=== PATIENT | male | born 1990 | race American Indian/Alaskan Native ===

== ENCOUNTER 2019-08-13 04:52 | Emergency (ER) | payer SELFPAY ==
[2019-08-13] MEDS ORDERED: oxyCODONE /ACETAMINOPHEN 5-325MG TAB PO ONE (07:30)
--- NOTE | 2019-08-13 08:07 | XRay Report ---
RIGHT HAND 2 VIEWS INDICATION / CLINICAL INFORMATION: Right hand injury COMPARISON: None available. FINDINGS: BONES / JOINT(S): No acute fracture or subluxation. No significant arthritis. SOFT TISSUES: No significant abnormality. No radiopaque foreign bodies are seen. ADDITIONAL FINDINGS: None. Signer Name: Vinod Leonardo MD Signed: 08/13/2019 8:02 AM Workstation Name: [id number]
[2019-08-13] MEDS ORDERED: LIDOCAINE (1%) 10 MG/1 ML VIAL 20 ML MDV INFILTRATI ONE (08:48)
[2019-08-13] MEDS ORDERED: NEOMY 3.5 MG/BACIT 400 UNITS/POLY B 5000 UNITS/GM OINT PACKET TP ONE ×2 (09:39→09:42)
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
[2019-08-13 10:37] VITALS: BP 110/70
== END 2019-08-13 10:36 | disposition home or self-care (01) ==
LOC: ED 04:52
DX: S61.411A Laceration without foreign body of right hand, initial encounter (principal); S60.511A Abrasion of right hand, initial encounter; X58.XXXA Exposure to other specified factors, initial encounter; Y93.89 Activity, other specified; Y92.89 Other specified places as the place of occurrence of the external cause; Y99.8 Other external cause status
CPT/HCPCS: A6250

== ENCOUNTER 2019-12-07 12:22 | Emergency (ER) | payer SELFPAY ==
--- NOTE | 2019-12-07 16:34 | Emergency Department Report ---
ED General Adult HPI - General Chief complaint: Urogenital-Male Stated complaint: NEED BLOODWORK Time Seen by Provider: 12/07/19 16:00 Source: patient Mode of arrival: Ambulatory Limitations: No Limitations - History of Present Illness Initial comments: 29-year-old -[place] male patient without past medical history presents with complaints of recurrent penile lesion x 1 year. He states the lesion is painful and tingles. He denies any scrotal pain/swelling, penile discharge, abdominal pain, nausea/vomiting, hematuria/dysuria, or urinary frequency. He rates his current pain as a 4/10 in severity. - Related Data Previous Rx's Medication Instructions Recorded Last Taken Type Ibuprofen [Motrin] 600 mg PO Q8H PRN #15 tablet 08/13/19 Unknown Rx cephALEXin [Keflex] 500 mg PO Q12HR #14 cap 08/13/19 Unknown Rx Valacyclovir HCl [Valacyclovir] 1,000 mg PO QDAY 5 Days #5 tablet 12/07/19 Unk nown Rx Allergies Allergy/AdvReac Type Severity Reaction Status Date / Time No Known Allergies Allergy Unverified 08/13/19 09:39 ED Review of Systems ROS: Stated complaint: NEED BLOODWORK Other details as noted in HPI Constitutional: denies: chills, diaphoresis, fever, malaise, weakness Respiratory: denies: cough, shortness of breath Cardiovascular: denies: chest pain Gastrointestinal: denies: abdominal pain, nausea, vomiting Genitourinary: denies: urgency, dysuria, frequency, hematuria, discharge, testicular pain, testicular mass Skin: lesions, pruritus. denies: change in color, change in hair/nails Neurological: denies: numbness, paresthesias Hematological/Lymphatic: denies: swollen glands ED Past Medical Hx - Past Medical History Previous Medical History?: No - Surgical History Past Surgical History?: No - Social History Smoking Status: Current Every Day Smoker Substance Use Type: Marijuana - Medications Home Medications: Home Medications Medication Instructions Recorded Confirmed Last Taken Type Ibuprofen [Motrin] 600 mg PO Q8H PRN #15 tablet 08/13/19 Unknown Rx cephALEXin [Keflex] 500 mg PO Q12HR #14 cap 08/13/19 Unknown Rx Valacyclovir HCl [Valacyclovir] 1,000 mg PO QDAY 5 Days #5 tablet 10/14/20 Unknown Rx ED Physical Exam - General Limitations: No Limitations General appearance: alert, in no apparent distress - Head Head exam: Present: atraumatic, normocephalic - Eye Eye exam: Present: normal appearance - ENT ENT exam: Present: mucous membranes moist - Neck Neck exam: Present: full ROM - Respiratory Respiratory exam: Absent: respiratory distress - Cardiovascular Cardiovascular Exam: Present: regular rate - GI/Abdominal GI/Abdominal exam: Present: soft. Absent: distended, tenderness - exam: Absent: urethral discharge, scrotal swelling External exam: Present: lesions (Small shallow ulceration noted to left distal portion of penile shaft without purulent discharge or surrounding erythema; ulceration appears consistent with herpes simplex virus). Absent: erythema - Neurological Exam Neurological exam: Present: alert, oriented X3, normal gait - Psychiatric Psychiatric exam: Present: normal affect, normal mood - Skin Skin exam: Present: warm, dry, normal color. Absent: rash ED Course Vital Signs 12/07/19 13:09 Temperature 98.6 F Pulse Rate 73 Respiratory 18 Rate Blood Pressure 126/78 O2 Sat by Pulse 98 Oximetry ED Medical Decision Making - Medical Decision Making 29-year-old -[place] male patient without past medical history presents with complaints of recurrent penile lesion x 1 year. He states the lesion is painful and tingles. He denies any scrotal pain/swelling, penile discharge, abdominal pain, nausea/vomiting, hematuria/dysuria, or urinary frequency. He rates his current pain as a 4/10 in severity. On exam, there is a small ulceration that is consistent with genital herpes. Patient prescribed valacyclovir and informed to follow-up with primary care, in urgent care, or the health department for further STI testing. His vitals are normal, he is well-appearing, he is stable for discharge home. Strict return precautions were discussed in detail with patient who verbalizes understanding. Critical care attestation.: If time is entered above; I have spent that time in minutes in the direct care of this critically ill patient, excluding procedure time. ED Disposition Clinical Impression: Genital herpes Qualifiers: Herpes simplex infection site: penis Qualified Code(s): A60.01 - Herpesviral infection of penis Disposition: TO HOME OR SELFCARE Is pt being admited?: No Condition: Stable Instructions: Genital Herpes Simplex (ED) Prescriptions: Valacyclovir HCl [Valacyclovir] 1,000 mg PO QDAY 5 Days #5 tablet Referrals: NIMA BOTELLO MD [Staff Physician] - 3-5 Days [facility] [Provider Group] - 3-5 Days
[2019-12-07 18:59] VITALS: BP 132/89
== END 2019-12-07 17:40 | disposition home or self-care (01) ==
LOC: ED 12:22
DX: A60.01 Herpesviral infection of penis (principal)
CPT/HCPCS: 99281